=== PATIENT | male | born 1965 | race Caucasian/White ===

== ENCOUNTER → 2020-10-30 09:39 | Outpatient (CLI) | payer OTHER, SELFPAY ==
--- NOTE | ~2020-10-30 | XR_ITS ---
XR elbow RT min 3V DATE: 10/30/2020 10:10 INDICATION: Injury and pain at elbow due to fall TECHNIQUE: 4 views COMPARISON: None FINDINGS: No fracture or dislocation. There is mild elbow joint effusion. There is prominent osteoart hritic change. IMPRESSION: Osteoarthritis and mild elbow joint effusion No fracture or dislocation is detected Reviewed, dictated and finalized at location A.
== END ==
PROVIDERS: Visit Provider Chiropractor
DX: S55.901 Unspecified injury of unspecified blood vessel at forearm level, right arm (principal); M19.021 Primary osteoarthritis, right elbow; M25.421 Effusion, right elbow
CPT/HCPCS: 73080